=== PATIENT | female | born 1990 | race Caucasian/White ===

== ENCOUNTER 2017-07-15 19:47 | Emergency (ER) | payer MEDICAID ==
[~2017-07-15] VITALS: Ht 162.6 cm; Wt 70.8 kg
[2017-07-15 19:59] VITALS: BP 105/77
--- NOTE | 2017-07-15 20:04 | NUR ---
TO LOBBY AMB, A/W LAMBERT, VSS
--- NOTE | 2017-07-15 20:45 | NUR ---
PATIENT LEFT WITHOUT BEING SEEN BY DR. Acosta. NO FURTHER CARE PROVIDED FOR PATIENT.
== END 2017-07-15 20:45 | disposition left against medical advice (07) ==
LOC: MED 19:47
DX: J02.9 Acute pharyngitis, unspecified (principal); Z53.21 Procedure and treatment not carried out due to patient leaving prior to being seen by health care provider

== ENCOUNTER 2019-10-06 20:08 | Emergency (ER) | payer MEDICAID ==
[~2019-10-06] VITALS: Ht 165.1 cm; Wt 68.0 kg
[2019-10-06 20:14] VITALS: BP 129/76
--- NOTE | 2019-10-06 20:21 | NUR ---
PT TAKEN TO BED 4
--- NOTE | 2019-10-06 20:35 | NUR ---
PT SITTING QUIETLY IN BED, TEXTING ON PHONE, APPEARS UNDISTRESSED. NO S/SX RESPITATORY DISTRESS. LUNGS CTA.
--- NOTE | 2019-10-06 20:38 | NUR ---
25 MG PO BENADRYL GIVEN FOR RASH. WILL REASSESS.
--- NOTE | 2019-10-06 20:40 | NUR ---
PT STATES IS WAITING OUTSIDE AND WILL BE DRIVING HOME.
--- NOTE | 2019-10-06 20:58 | NUR ---
PT DENIES ASE TO MEDICATION. OK TO DISCHARGE.
[2019-10-06 21:00] VITALS: BP 129/76
--- NOTE | 2019-10-06 21:00 | NUR ---
Patient discharged with v/s stable. Written and verbal after care instructions given and explained. Patient alert, oriented and verbalized understanding of instructions. Ambulatory with steady gait. All questions addressed prior to discharge. ID band removed. Patient advised to follow up with PMD. Rx of Hydralazine and Prednisone given. Patient educated on indication of medication including possible reaction and side effects. Opportunity to ask questions provided and answered.
== END 2019-10-06 21:00 | disposition home or self-care (01) ==
LOC: MED 20:08
DX: L50.0 Allergic urticaria (principal); Z88.5 Allergy status to narcotic agent
CPT/HCPCS: 99283; Q0163

== ENCOUNTER 2022-04-24 09:36 | Emergency (ER) | payer SELFPAY ==
[~2022-04-24] VITALS: Ht 165.1 cm; Wt 76.3 kg
[2022-04-24 09:45] VITALS: BP 107/79
--- NOTE | 2022-04-24 10:05 | NUR ---
ASSUMED PATIENT CARE, NURSING ASSESSMENT COMPLETED.
--- NOTE | 2022-04-24 10:47 | NUR ---
UNABLE TO AUSCULTATE HEART TONES AT THIS TIME, AWARE.
[2022-04-24 11:05] LABS: APPEARANCE,URINE CLEAR (CLEAR); BILIRUBIN,URINE NEGATIVE (NEGATIVE); BLOOD, URINE 1+ (NEGATIVE); COLOR,URINE YELLOW (YELLOW); LEUKOCYTE ESTERASE ,URINE TRACE (NEGATIVE); NITRITE, URINE NEGATIVE (NEGATIVE); UGLUCOSE NEGATIVE (NEGATIVE)
[2022-04-24 11:22] LABS: RBC,URINE 0-5 /HPF (0-5); WBC,URINE 0-5 /HPF (0-5)
[2022-04-24 11:44] VITALS: BP 110/77
--- NOTE | 2022-04-24 11:45 | NUR ---
DISPO AND MEDICAL DECISION MAKING, DC HOME WITH AFTERCARE INSTRUCTIONS, UNDERSTOOD BY PATIENT WELL. VS WNL, NO DISTRESS.
== END 2022-04-24 11:44 | disposition home or self-care (01) ==
LOC: MED 09:36
DX: O20.0 Threatened abortion (principal); Z88.5 Allergy status to narcotic agent; Z3A.11 11 weeks gestation of pregnancy
CPT/HCPCS: 81001; 99284